=== PATIENT | male | born 1950 | race Caucasian/White ===

== ENCOUNTER → 2016-10-19 | Outpatient (CLI) | payer OTHER ==
[~2016-10-19] MED LIST: ADULT LOW DOSE81 MG PO; CARDURA PO; HCTZ; HYDROCHLOROTHIA25 M1 PO; LIPITOR; LIPITOR20 MG PO; LOTREL 10-20 M1 EACH PO; TOPROL XL25 MG PO
--- NOTE | ~2016-10-19 | 2DMMODE ---
[facility] [address] [place] [address] 2 D/M-MODE ECHOCARDIOGRAM Name: JAREDNADINEJUAN ALBERTO Room #: REG [facility]#: [id number] Admission: 10/19/16 Attend Phys: Markos Tsang MD Discharge: Date of : 48 Date of Service: 10/19/16 1158 Report #: [id number] THIS REPORT FOR: //name// APPROVED REPORT Study performed: 10/19/2016 09:41:44 EXAM: Comprehensive 2D, Doppler, and color-flow Echocardiogram Patient Location: Out-Patient Room #: Echo lab Other Information Study Quality: Good Indications Hypertension/HDD Dilated Ascending Aorta. 2D Dimensions LVEF(%): 61.15 (>50%) IVSd: 10.88 (7-11mm) LVOT Diam: 25.21 (18-24mm) LVDd: 52.65 mm PWd: 10.88 (7-11mm) Ascending Ao: 42.27 (22-36mm) LVDs: 35.26 (25-40mm) Aortic Root: 50.19 mm IVC: 19.00 mm Cowan's LVEF: 61.15 % Volumes Left Atrial Volume (Systole) Single Plane 4CH: 34.97 mL Single Plane 2CH: 58.53 mL LA ESV Index: 26.00 mL/m2 Aortic Valve AoV Peak Dusty.: 1.36 m/s AO Peak Gr.: 7.35 mmHg LVOT Max P.63 mmHg LVOT Max V: 1.29 m/s JUS Vmax: 4.74 cm2 Mitral Valve E/A Ratio: 1.2 MV Decel. Time: 244.42 ms MV E Max Dusty.: 0.60 m/s MV A Dusty.: 0.50 m/s MV PHT: 70.88 ms [facility] [place] [address] 2 D/M-MODE ECHOCARDIOGRAM Name: JUAN ALBERTO SALINAS Room #: [facility].#: [id number] Admission: 10/19/16 Attend Phys: Markos Tsang MD Discharge: Date of : 48 Date of Service: 10/19/16 1158 Report #: [id number] IVRT: 235.29 ms Pulmonary Valve PV Peak Dusty.: 0.77 m/s PV Peak Gr.: 2.36 mmHg Pulmonary Vein P Vein S: 0.40 m/s P Vein A: 0.26 m/s P Vein D: 0.28 m/s P Vein A Dur.: 124.6 msec P Vein S/D Ratio: 1.43 Tricuspid Valve TR Peak Dusty.: 2.38 m/s RAP Estimate: 5.00 mmHg TR Peak Gr.: 22.71 mmHg PA Pressure: 28.00 mmHg Left Ventricle The left ventricle is normal size. There is normal left ventricular wall thickness. The left ventricular systolic function is normal. The left ventricular ejection fraction is within the normal range. LVEF is 55-60%. Right Ventricle The right ventricle is normal size. The right ventricular systolic function is normal. Atria The left atrium size is normal. Right atrium is mildly dilated. Aortic Valve The aortic valve is normal in structure. Mild aortic regurgitation. There is no aortic valvular stenosis. Mitral Valve The mitral valve is normal in structure. Mild mitral regurgitation. No evidence of mitral valve stenosis. Tricuspid Valve The tricuspid valve is normal in structure. There is no tricuspid valve stenosis. There is mild tricuspid regurgitation. The right atrial pressure is estimated at 5 mmHg. There is no pulmonary hypertension. Pulmonic Valve The pulmonary valve is normal in structure. Trace pulmonic regurgitation. [address] [address] 2 D/M-MODE ECHOCARDIOGRAM Name: BRADJUAN ALBERTO JR [id number] Admission: 10/19/16 Attend Phys: Markos Tsang MD Discharge: Date of : 48 Date of Service: 10/19/16 1158 Report #: [id number] Great Vessels Ascending Aortic Aneurysm 4.1 cm. IVC is normal in size and collapses >50% with inspiration. Pericardium There is no pericardial effusion. <Conclusion> The left ventricle is normal size. The left ventricular systolic function is normal. The right ventricle is normal size. The left atrium size is normal. Right atrium is mildly dilated. Mild aortic regurgitation. Mild mitral regurgitation. There is mild tricuspid regurgitation. The right atrial pressure is estimated at 5 mmHg. There is no pulmonary hypertension. Ascending Aortic Aneurysm 4.1 cm. <ELECTRONICALLY SIGNED> By: Markos Tsang MD 10/19/16 1158 1158 1158 Markos Tsang MD /INF
== END ==
LOC: CV 10:32
DX: I10 Essential (primary) hypertension (principal); I77.819 Aortic ectasia, unspecified site

== ENCOUNTER 2017-05-20 05:27 | Day surgery (SDC) | payer OTHER ==
[~2017-05-20] VITALS: Ht 190.5 cm; Wt 75.7 kg
--- NOTE | ~2017-05-20 | O ---
[facility] [place] [address] OPERATIVE REPORT Name: BRADJUAN ALBERTO GONZALEZ Room #: [facility]..#: [id number] Admission: 05/20/17 Attend Phys: Deedee Flood, Discharge: 05/20/17 Date of : 48 Report #: [id number] THIS REPORT FOR: //name// CC: Josemanuel Flood DATE OF SERVICE: 05/20/2017 DIAGNOSES: 1. Right carpal tunnel syndrome. 2. Right long finger trigger finger. 3. Right ring finger trigger finger. 4. Right radiocarpal arthrosis. PROCEDURE PERFORMED: 1. Right open carpal tunnel release. 2. Right long finger A1 halley release. 3. Right ring finger A1 halley release. 4. Right radiocarpal injection ____ under fluoroscopy. SURGEON: Dr. Deedee Flood. ANESTHESIA: Local MAC anesthesia. ESTIMATED BLOOD LOSS: 2 mL. TOURNIQUET TIME: 18 minutes. COMPLICATIONS: None. CONDITION: Stable. DISPOSITION: To recovery room. INDICATIONS: The patient is a 66-year-old male with the above-mentioned diagnoses. He elects for operative treatment. The risks, benefits, alternatives, and complications were discussed included but not limited to infection, damage to blood vessels or nerves, incomplete relief of his symptoms. An informed consent was obtained. The correct extremity was identified and labeled by myself after verbal confirmation of the patient as well as visual confirmation and signed informed consent. DESCRIPTION OF PROCEDURE: The patient was brought back to the operating room, placed on the operating table in the supine position. He received preoperative antibiotics. Tourniquet was placed over padding on the patient's right upper extremity. The right upper extremity was sterilely prepped and draped in the [address] [address] OPERATIVE REPORT Name: JUAN ALBERTO SALINAS JR Room #: [facility]..#: [id number] Admission: 05/20/17 Attend Phys: Deedee Flood, Discharge: 05/20/17 Date of : 48 Report #: [id number] usual fashion. Final timeout was taken to verify the correct patient, operative procedure and operative site, all concurred. The arm was elevated and exsanguinated. Next, after adequate sedation was achieved, a 22-guage needle was inserted at the end of the radiocarpal joint dorsally. This position was confirmed using fluoroscopic guidance in AP and lateral views. Once this position was confirmed, 1 mL of Depo-Medrol and 4 mL of 1% lidocaine was injected in the radiocarpal space. He tolerated it well ____. A total of approximately 6 mL of a mixture of 0.25% Marcaine with 1% lidocaine was injected into the subcutaneous tissue at the previous incision site. The arm was then elevated, exsanguinated and the tourniquet inflated. The entire procedures were done with the aid of 3.5 times loupe magnification. Next, a 2 cm incision was made over the carpal tunnel ____ Dissection was carried down the mid portion incision with a 15 blade through the ____ transverse carpal ligament. The ____ transverse carpal ligament was transected proximally ____ palm. The nerve was evaluated and it looked to be in excellent condition and had a nice return of vascular pattern after complete release of the ____ transverse carpal ligament. An oblique incision was made over each of the long and ring finger ____. Dissection was carried down in each subcutaneous tissue with tenotomy scissors. In each, the A1 halley was easily identified and carefully incised. Careful attention was placed to avoid damage to any other structures, specifically A2 halley. Each tendon in both the long and the ringer fingers were brought out gently through the incision to decrease ____ to the tendons. Each finger was taken through a passive range of motion and the tendons glided smoothly. The fingers were taken through active range of motion, there was no locking or clicking. All of the wounds were thoroughly irrigated. Skin was closed with 4-0 nylon suture. The wounds were dressed with Adaptic and sterile gauze. He was placed in a bulky mildly compressive dressing. All fingers were pink with brisk capillary refill at the conclusion of the case. After deflation of the tourniquet, all sponge and needle counts were correct. The patient was transferred to postoperative recovery room in stable condition. <ELECTRONICALLY SIGNED> By: Deedee Flood MD 06/24/17 1526 1549 1750 Deedee Flood MD /nt
[~2017-05-20 05:27] MED LIST changes: +IRON325 PO; +NEURONTIN 300300 M1 PO; +TYLENOL325 MG PO; +ZOCOR20 MG PO
[2017-05-20 12:44] VITALS: BP 114/72
[2017-05-20 12:48] LABS: HEMATOCRIT 42.1 % (42.0-52.0); MCHC 33.3 g/dL (28.0-37.0); MCV 86.9 fL (80.0-100.0); RBC 4.84 mil/uL (4.50-6.00); RDW 16.7 % (10.5-14.5); WBC 8.9 thou/uL (4.0-11.0)
== END 2017-05-20 16:35 | disposition home or self-care (01) ==
LOC: OR 05:27 → TBA 05:27 → OR 15:46
PROVIDERS: Orthopaedic Surgery Hand Surgery
DX: G56.01 Carpal tunnel syndrome, right upper limb (principal); M65.331 Trigger finger, right middle finger; M65.341 Trigger finger, right ring finger; I10 Essential (primary) hypertension; E78.5 Hyperlipidemia, unspecified; F17.210 Nicotine dependence, cigarettes, uncomplicated; Z87.442 Personal history of urinary calculi; Z98.890 Other specified postprocedural states; Z88.6 Allergy status to analgesic agent; Z79.899 Other long term (current) drug therapy; Z79.82 Long term (current) use of aspirin
CPT/HCPCS: 50010; 50101; 50386; 56526; 57006; 57091; 62110; 62900; 70005

== ENCOUNTER → 2017-10-11 | Outpatient (CLI) | payer OTHER | LOC: NUC 11:31 | DX: I25.10 Atherosclerotic heart disease of native coronary artery without angina pectoris (principal); I71.9 Aortic aneurysm of unspecified site, without rupture; I10 Essential (primary) hypertension ==

== ENCOUNTER → 2018-10-10 | Outpatient (CLI) | payer OTHER ==
--- NOTE | 2018-10-10 09:51 | 2DMMODE ---
[facility] [place] [employer] [place] [address] 2 D/M-MODE ECHOCARDIOGRAM Name: JUAN ALBERTO SALINAS Room #: REG [facility]#: [id number] ������������� Admission: 10/10/18 ������������� Attend Phys: Markos Tsang MD Discharge: ��� ������������� ��� Date of : 48 Date of Service: 10/10/18 0951 �� Report #: [id number] �������� ��������������������������������������������[id number] THIS REPORT FOR: //name// APPROVED REPORT Study performed: 10/10/2018 09:10:46 EXAM: Comprehensive 2D, Doppler, and color-flow Echocardiogram Patient Location: Out-Patient Status: routine BSA: 2.15 HR: 45 bpm BP: 138/84 mmHg Rhythm: NSR/RICHIE Indications HTN, dilated aorta. 2D Dimensions RVDd: 41.40 mm IVSd: 11.18 (7-11mm) LVDd: 52.86 mm PWd: 10.48 (7-11mm) Ascending Ao: 46.63 (22-36mm) LVDs: 37.44 (25-40mm) Aortic Root: 53.69 mm Volumes Left Atrial Volume (Systole) Single Plane 4CH: 44.00 mL Single Plane 2CH: 89.49 mL LA ESV Index: 34.00 mL/m2 Aortic Valve AoV Peak Dusty.: 1.41 m/s AO Peak Gr.: 7.99 mmHg LVOT Max P.32 mmHg LVOT Max V: 1.35 m/s Mitral Valve E/A Ratio: 0.9 MV Decel. Time: 303.40 ms MV E Max Dusty.: 0.52 m/s MV A Dusty.: 0.58 m/s MV PHT: 87.99 ms IVRT: 124.[address] [facility] [place] [place] [address] 2 D/M-MODE ECHOCARDIOGRAM Name: JUAN ALBERTO SALINAS Room #: REG [facility]#: [id number] ������������� Admission: 10/10/18 ������������� Attend Phys: Markos Tsang MD Discharge: ��� ������������� ��� Date of : 48 Date of Service: 10/10/18 0951 �� Report #: [id number] �������� ��������������������������������������������[id number] Pulmonary Valve PV Peak Dusty.: 0.89 m/s PV Peak Gr.: 3.15 mmHg Pulmonary Vein P Vein S: 0.56 m/s P Vein A: 0.24 m/s P Vein D: 0.36 m/s P Vein A Dur.: 138.4 msec P Vein S/D Ratio: 1.56 Tricuspid Valve TR Peak Dusty.: 2.36 m/s RAP Estimate: 5.00 mmHg TR Peak Gr.: 22.23 mmHg PA Pressure: 27.00 mmHg Left Ventricle The left ventricle is normal size. There is normal LV segmental wall motion. There is normal left ventricular wall thickness. Left ventricular systolic function is normal. LVEF is 55-60%. Mild diastolic dysfunction is present (impaired relaxation pattern). Right Ventricle The right ventricle is normal size. The right ventricular systolic function is normal. Atria Left atrium is at the upper limits of normal. Right atrium is at the upper limits of normal. Aortic Valve Aortic valve is trileaflet. Mild to moderate aortic regurgitation. There is no aortic valvular stenosis. Mitral Valve The mitral valve is normal in structure. Mild mitral annular calcification. Mild mitral regurgitation. Tricuspid Valve The tricuspid valve is normal in structure. Mild tricuspid regurgitation. Estimated PAP is 25-30mmHg. Pulmonic Valve The pulmonary valve is normal in structure. Trace pulmonic regurgitation. Great Vessels Ascending aorta is dilated at 4.7cm. IVC is normal in size and [facility] [address] [place] [address] 2 D/M-MODE ECHOCARDIOGRAM Name: JAREDNADINEJUAN ALBERTO Room #: REG [facility]#: [id number] ������������� Admission: 10/10/18 ������������� Attend Phys: Markos Tsang MD Discharge: ��� ������������� ��� Date of : 48 Date of Service: 10/10/18 0951 �� Report #: [id number] �������� ��������������������������������������������[id number] collapses >50% with inspiration. Pericardium There is no pericardial effusion. <Conclusion> The left ventricle is normal size. There is normal left ventricular wall thickness. Left ventricular systolic function is normal. Mild diastolic dysfunction is present (impaired relaxation pattern). The right ventricle is normal size. Left atrium is at the upper limits of normal. Aortic valve is trileaflet. Mild to moderate aortic regurgitation. Mild mitral annular calcification. Mild mitral regurgitation. Mild tricuspid regurgitation. Estimated PAP is 25-30mmHg. Ascending aorta is dilated at 4.7cm. ��������������������������������������������� <ELECTRONICALLY SIGNED> ���������������������������������������� By: Markso Tsang MD ��������������������������������������������� 10/10/1851 Markos Tsang MD /INF
== END ==
LOC: CV 08:50
DX: I08.3 Combined rheumatic disorders of mitral, aortic and tricuspid valves (principal); I10 Essential (primary) hypertension

== ENCOUNTER → 2018-10-19 | Outpatient (CLI) | payer OTHER ==
[2018-10-19 08:06] LABS: CREATININE 0.9 mg/dL (0.7-1.3)
== END ==
LOC: CAT 06:24
PROVIDERS: Surgery Vascular Surgery
DX: I71.2 Thoracic aortic aneurysm, without rupture (principal); J94.8 Other specified pleural conditions; K76.9 Liver disease, unspecified; I11.9 Hypertensive heart disease without heart failure

== ENCOUNTER → 2019-07-25 | Outpatient (CLI) | payer OTHER | LOC: SJCVCIMAG 10:56 | DX: I45.2 Bifascicular block (principal); R94.31 Abnormal electrocardiogram [ECG] [EKG]; I10 Essential (primary) hypertension; I71.2 Thoracic aortic aneurysm, without rupture; E78.00 Pure hypercholesterolemia, unspecified; Z72.0 Tobacco use ==

== ENCOUNTER 2019-08-15 12:33 | Emergency (ER) | payer OTHER ==
[~2019-08-15] VITALS: Ht 190.5 cm; Wt 91.2 kg
[2019-08-15] MEDS ORDERED: VITAMIN D-40010 MCG PO (12:55)
[2019-08-15] MEDS ORDERED: NORCO 5-325 TA1 EAC1 PO (14:09)
[2019-08-15] MEDS ORDERED: MIRALAX17 G1 PO (14:09)
[2019-08-15 14:23] VITALS: BP 130/91
== END 2019-08-15 14:24 | disposition home or self-care (01) ==
LOC: ER 12:33
DX: S52.592A Other fractures of lower end of left radius, initial encounter for closed fracture (principal); S52.692A Other fracture of lower end of left ulna, initial encounter for closed fracture; M25.561 Pain in right knee; I10 Essential (primary) hypertension; F17.200 Nicotine dependence, unspecified, uncomplicated; Z79.899 Other long term (current) drug therapy; Z79.82 Long term (current) use of aspirin; Z88.6 Allergy status to analgesic agent; W18.39XA Other fall on same level, initial encounter; Y93.89 Activity, other specified; Y92.89 Other specified places as the place of occurrence of the external cause; Y99.8 Other external cause status

== ENCOUNTER → 2019-10-20 | Outpatient (CLI) | payer OTHER ==
[~2019-10-20] MED LIST changes: +MIRALAX17 G1 PO; +NORCO 5-325 TA1 EAC1 PO; +VITAMIN D-40010 MCG PO
[2019-10-20 09:52] LABS: CREATININE 1.1 mg/dL (0.7-1.3)
== END ==
LOC: CAT 08:50
PROVIDERS: ATTEND Internal Medicine Cardiovascular Disease
DX: J92.9 Pleural plaque without asbestos (principal); I71.2 Thoracic aortic aneurysm, without rupture; I77.819 Aortic ectasia, unspecified site; J98.4 Other disorders of lung

== ENCOUNTER → 2020-04-15 | Outpatient (CLI) | payer OTHER | LOC: SJCVC 10:19 | PROVIDERS: ATTEND Internal Medicine Cardiovascular Disease | DX: I45.2 Bifascicular block (principal); R00.1 Bradycardia, unspecified; R94.31 Abnormal electrocardiogram [ECG] [EKG]; I71.2 Thoracic aortic aneurysm, without rupture; I10 Essential (primary) hypertension; E78.5 Hyperlipidemia, unspecified; F17.200 Nicotine dependence, unspecified, uncomplicated ==

== ENCOUNTER → 2020-10-16 | Outpatient (CLI) | payer OTHER | LOC: SJCVCIMAG 07:40 | PROVIDERS: ATTEND Internal Medicine Cardiovascular Disease | DX: R94.31 Abnormal electrocardiogram [ECG] [EKG] (principal); I08.3 Combined rheumatic disorders of mitral, aortic and tricuspid valves; R00.1 Bradycardia, unspecified; I11.9 Hypertensive heart disease without heart failure; I71.2 Thoracic aortic aneurysm, without rupture; E78.00 Pure hypercholesterolemia, unspecified; E78.5 Hyperlipidemia, unspecified; I45.10 Unspecified right bundle-branch block; I45.2 Bifascicular block; Z79.82 Long term (current) use of aspirin; Z79.899 Other long term (current) drug therapy; Z87.891 Personal history of nicotine dependence; Z72.89 Other problems related to lifestyle; Z88.5 Allergy status to narcotic agent ==

== ENCOUNTER → 2020-10-16 | Outpatient (CLI) | payer OTHER ==
[2020-10-16 12:06] LABS: CALCIUM 9.8 mg/dL (8.5-10.1); CREATININE 0.9 mg/dL (0.7-1.3); POTASSIUM 4.8 mmol/L (3.5-5.1)
== END ==
LOC: CAT 08:50
PROVIDERS: ATTEND Internal Medicine Cardiovascular Disease
DX: I71.2 Thoracic aortic aneurysm, without rupture (principal); K76.89 Other specified diseases of liver; I25.10 Atherosclerotic heart disease of native coronary artery without angina pectoris; J92.9 Pleural plaque without asbestos

== ENCOUNTER → 2021-04-17 | Outpatient (CLI) | payer OTHER | LOC: SJCVC 09:49 | PROVIDERS: ATTEND Internal Medicine Cardiovascular Disease | DX: R94.31 Abnormal electrocardiogram [ECG] [EKG] (principal); I45.2 Bifascicular block; I10 Essential (primary) hypertension; I71.2 Thoracic aortic aneurysm, without rupture; E78.00 Pure hypercholesterolemia, unspecified; R00.1 Bradycardia, unspecified; E78.5 Hyperlipidemia, unspecified; Z72.0 Tobacco use; Z88.5 Allergy status to narcotic agent; Z79.82 Long term (current) use of aspirin; Z79.899 Other long term (current) drug therapy; Z87.891 Personal history of nicotine dependence; Z72.89 Other problems related to lifestyle ==